=== PATIENT | male | born 1970 | race Caucasian/White ===

== ENCOUNTER 2017-12-24 12:57 | Inpatient (IN) | payer OTHER ==
[~2017-12-24] VITALS: Ht 180.3 cm; Wt 83.7 kg
[2017-12-24 13:01] VITALS: BP 122/97
[2017-12-24 13:31] LABS: HEMATOCRIT 42.1 % (42.0-52.0); MCH 29.2 pg (26.0-34.0); MCHC 33.4 g/dL (28.0-37.0); MCV 87.5 fL (80.0-100.0); MPV 7.2 fl. (7.2-11.1); NUCLEATED RBCS 0 /100WBC; PLATELET COUNT* 465 thou/uL (150-400); RBC 4.81 mil/uL (4.50-6.00); RDW-CV 14.7 % (10.5-14.5); WBC 22.3 thou/uL (4.0-11.0)
[2017-12-24 13:42] LABS: ANION GAP 8 mmol/L (7-16); BUN 17 mg/dL (7-18); CALCIUM 9.2 mg/dL (8.5-10.1); CHLORIDE 98 mmol/L (98-107); CO2 29 mmol/L (21-32); CREATININE 1.3 mg/dL (0.6-1.3); GLUCOSE 98 mg/dL (70-99); POTASSIUM 4.5 mmol/L (3.5-5.1); SODIUM 135 mmol/L (136-145)
[2017-12-24 13:43] LABS: APTT 33.1 Seconds (25.0-31.3); INR 1.1; PROTIME 10.3 Seconds (9.20-11.50)
[2017-12-24 13:53] LABS: ALBUMIN 3.2 g/dL (3.4-5.0); ALKALINE PHOSPHATASE 81 U/L (46-116); NT-PRO BRAIN NAT PEPTIDE 24 pg/mL (<300); SGOT 10 U/L (15-37); SGPT 16 U/L (30-65); TOTAL BILIRUBIN 0.6 mg/dL (<0.1-1.0); TOTAL PROTEIN 8.3 g/dL (6.4-8.2); TROPONIN-I LEVEL <0.06 ng/mL (<0.06)
[2017-12-24 14:14] LABS: ABSOLUTE EOSINOPHILS 0.4 thou/uL (0.0-0.7); ABSOLUTE LYMPHOCYTES 2.9 thou/uL (0.8-5.3); ABSOLUTE NEUTROPHILS 16.9 thou/uL (1.6-8.1); CLUMPED PLTS RARE; PLATELET ESTIMATE INCREASED
[2017-12-24 17:07] VITALS: BP 116/72
[2017-12-24 18:22] VITALS: BP 127/81
--- NOTE | 2017-12-24 18:35 | NUR ---
PATIENT ADMITTED TO ROOM 316 FROM ER. PATIENT ALERT AND ORIENTED X 4. RATING LEFT ARM PAIN A 10/10, NUMBNESS AND TINGLING NOTED. PATIENT NOTED TO HAVE LARGE LUMP TO LEFT SIDE OF BACK, DR. GARCIA WAS NOTIFIED AND SURGERY CONS FOR AM. IVF INFUSING, SCHED ABX. COMMISSION FOR THE BLIND DIRECTOR IN PLACE, SINUS TACH NOTED. PATIENT REQUESTING FOOD, REG DIET ORDERED. ORIENTED TO CALL LIGHT. CALL LIGHT WITHIN REACH, WILL CONTINUE TO MONITOR.
[2017-12-24 20:20] VITALS: BP 129/80
[2017-12-24 23:30] VITALS: BP 113/73
[2017-12-25 03:43] LABS: HEMATOCRIT 39.2 % (42.0-52.0); HEMOGLOBIN 12.8 gm/dL (14.0-18.0); MCH 28.7 pg (26.0-34.0); MCHC 32.7 g/dL (28.0-37.0); MPV 7.2 fl. (7.2-11.1); RBC 4.46 mil/uL (4.50-6.00); RDW-CV 14.5 % (10.5-14.5); WBC 22.1 thou/uL (4.0-11.0)
[2017-12-25 04:00] VITALS: BP 113/60
[2017-12-25 04:08] LABS: ALBUMIN 2.5 g/dL (3.4-5.0); CALCIUM 8.6 mg/dL (8.5-10.1); CREATININE 1.2 mg/dL (0.6-1.3); POTASSIUM 5.2 mmol/L (3.5-5.1); TOTAL BILIRUBIN 0.3 mg/dL (<0.1-1.0); TOTAL PROTEIN 6.3 g/dL (6.4-8.2)
--- NOTE | 2017-12-25 04:59 | NUR ---
PT SLEPT AT INTERVALS DURING THE NIGHT, IV FLUIDS GIVEN, PHYSICIAN CONTACTED LAST NIGHT AND IV TORADOL ORDERED AND GIVEN FOR PAIN, CT SCAN DONE LAST NIGHT AND RESULTS REPORTED TO DR. GARCIA, PT PLEASANT, SINUS TACH ON TELE MONITOR, CONT. PULSE OX 95-96% ON ROOM AIR, CALL LIGHT IN REACH, BED ALARM ON FOR SAFETY, PT LITTLE UNSTEADY AND FATIGUED WHEN UP. WILL CONTINUE TO MONITOR.
[2017-12-25 08:15] VITALS: BP 117/69
--- NOTE | 2017-12-25 13:19 | EKG ---
[place] [address] ELECTROCARDIOGRAM REPORT Name: NILAY AREVALO Room: [address] ADM IN ..#: [id number] Admission: 12/24/17 Attend Phys: Luis Billy, Discharge: Date of : 74 Report #: [id number] THIS REPORT FOR: //name// [facility] ED Test Date: 2017-12-24 Test Time: 13:02:38 Pat Name: NILAY AREVALO Department: Room: [address] Gender: M Housekeeper/Custodian/Laundry Worker: GALE : 1970 Requested By: Reynold Julio Order Number: [id number] Reading MD: Moisés Gallego Measurements Intervals [place] Rate: 108 P: 69 AR: 158 QRS: 100 QRSD: 94 T: 43 QT: 318 QTc: 426 Interpretive Statements Sinus tachycardia Probable left atrial enlargement Right axis deviation Baseline wander in lead(s) I,III,aVL,aVF No previous ECG available for comparison Electronically Signed On 12-25-2017 13:18:56 CDT by Moisés Gallego [email or web address] <ELECTRONICALLY SIGNED> By: Moisés Gallego MD, [facility] 12/25/17 1318 1302 1302 Moisés Gallego MD, [facility] /EPI
[2017-12-25 16:36] VITALS: BP 128/83
--- NOTE | 2017-12-25 16:43 | NUR ---
PATIENT DOWN FOR C-SPINE XRAY AND US OF LUMP TO BACK TODAY. DR. GARCIA NOTIFIED OF RESULTS. PULMONARY CONS AND SAW PATIENT THIS AFTERNOON. DECADRON INCREASED AND ROCEPHIN DOSE INCREASED DAILY. PATIENT CONTINUALLY ASKING FOR SOMETHING TO EAT, GOOD APPETITE. NO COMPLAINTS OF PAIN THIS SHIFT.
[2017-12-25 20:40] VITALS: BP 118/72
[2017-12-26] VITALS: BP 121/70
[2017-12-26 03:56] VITALS: BP 113/73
--- NOTE | 2017-12-26 06:12 | NUR ---
PT SLEPT MOST OF SHIFT. ASSESSMENT DOCUMENTED. MEDS GIVEN PER E-OCT. IV PATENT, FLUIDS INFUSING. PAIN MEDS GIVEN FOR LEFT SHOULDER PAIN PER E-OCT. PT ATE SEVERAL SNACKS THROUGH NIGHT. WILL CONTINUE WITH PLAN OF CARE.
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
[2017-12-26 12:47] VITALS: BP 120/65
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
== END 2017-12-26 14:02 | disposition left against medical advice (07) | DRG 871 ==
LOC: M.ERS 12:57 → EDBD 12:57 → M.3W 15:41 → M.TBA-ER 15:41 → M.3W 17:15
PROVIDERS: Family Medicine; ADMIT Family Medicine
DX: A41.9 Sepsis, unspecified organism (principal); J18.9 Pneumonia, unspecified organism; J02.0 Streptococcal pharyngitis; R13.10 Dysphagia, unspecified; R59.1 Generalized enlarged lymph nodes; J98.01 Acute bronchospasm; J03.90 Acute tonsillitis, unspecified; R22.2 Localized swelling, mass and lump, trunk; Z88.0 Allergy status to penicillin; Z90.5 Acquired absence of kidney; Z83.6 Family history of other diseases of the respiratory system; Z53.21 Procedure and treatment not carried out due to patient leaving prior to being seen by health care provider